=== PATIENT | female | born 1990 | race American Indian/Alaskan Native ===

== ENCOUNTER 2017-03-28 07:32 | Outpatient (CLI) | payer MEDICAID ==
[2017-03-28 07:47] VITALS: BP 127/66
--- NOTE | 2017-03-28 11:48 | Ultrasound Report ---
BIOPHYSICAL PROFILE: INDICATION: Decreased movement. COMPARISON: None similar at this institution. TECHNIQUE: Transabdominal ultrasound with Doppler interrogation. 2 - breathing movements 2 - movements 2 - posture and tone 2 - Qualitative amniotic fluid volume 8 - TOTAL SCORE OF POSSIBLE 8 Heart Rate (bpm) 135 CONCLUSION: Findings, as above. A distended urinary bladder incidentally noted throughout the exam. Please correlate.
== END 2017-03-28 10:38 | disposition home or self-care (01) ==
LOC: TRG 07:32
PROVIDERS: ATTEND Obstetrics & Gynecology
DX: O36.8130 Decreased fetal movements, third trimester, not applicable or unspecified (principal); O47.1 False labor at or after 37 completed weeks of gestation; Z3A.37 37 weeks gestation of pregnancy
CPT/HCPCS: 59025; 76819

== ENCOUNTER 2017-03-31 08:38 | Outpatient (CLI) | payer MEDICAID ==
[2017-03-31 08:51] VITALS: BP 132/80
[2017-03-31] MEDS ORDERED: VISTARIL PO PRN (10:00)
== END 2017-03-31 09:55 | disposition home or self-care (01) ==
LOC: TRG 08:38
PROVIDERS: ATTEND Obstetrics & Gynecology
DX: O47.1 False labor at or after 37 completed weeks of gestation (principal); Z3A.38 38 weeks gestation of pregnancy
CPT/HCPCS: 59025; Q0177

== ENCOUNTER 2017-04-02 05:43 | Outpatient (CLI) | payer MEDICAID ==
[2017-04-02] MEDS ORDERED: LACTATED RINGERS 1,000 ML IV ONE (06:07)
[2017-04-02] MEDS ORDERED: ZOFRAN IV ONE (06:07)
[2017-04-02] MEDS ORDERED: PHENERGAN PR PRN (08:02)
[2017-04-02 10:43] LABS: Urine Drugs of Abuse Note Disclamer
[2017-04-02 10:54] LABS: Hematocrit 36.3 % (30.3-42.9); Hemoglobin 11.5 gm/dl (10.1-14.3); Mean Corpuscular HGB Conc 32 % (30-34); Platelet Count 145 K/mm3 (140-440); Red Cell Distribution Width 18.7 % (13.2-15.2); White Blood Count 15.4 K/mm3 (4.5-11.0)
[2017-04-02] MEDS ORDERED: LACTATED RINGERS 1,000 ML ONE (10:54)
[2017-04-02 10:56] LABS: Bilirubin,Urine NEG (Negative); Blood,Urine NEG (Negative); Ketones,Urine 80 mg/dL (Negative); Leukocyte Esterase,Urine NEG (Negative); Mucus,Urine 3+ /HPF; Nitrite,Urine NEG (Negative)
[2017-04-02 10:59] LABS: Mean Corpuscular Hemoglobin 21 pg (28-32); Mean Corpuscular Volume 65 fl (79-97)
[2017-04-02] MEDS: LACTATED RINGERS 1,000 ML IV SCH ×2 (11:15→12:34)
[2017-04-02 11:18] LABS: Alanine Aminotransferase 8 units/L (7-56); Albumin 3.7 g/dL (3.9-5); Albumin/Globulin Ratio 1.1 %; Alkaline Phosphatase 239 units/L (35-129); Anion Gap 20 mmol/L; BUN/Creatinine Ratio 10; Blood Urea Nitrogen 4 mg/dL (7-17); Calcium 9.2 mg/dL (8.4-10.2); Carbon Dioxide 20 mmol/L (22-30); Chloride 102.2 mmol/L (98-107); Glucose 90 mg/dL (65-100); Potassium 3.5 mmol/L (3.6-5.0); Sodium 139 mmol/L (137-145); Total Protein 7.2 g/dL (6.3-8.2)
[2017-04-02] MEDS ORDERED: PEPCID IV SCH (12:00)
[2017-04-02 13:23] VITALS: BP 132/61
== END 2017-04-02 14:25 | disposition home or self-care (01) ==
LOC: TRG 05:43
PROVIDERS: ATTEND Obstetrics & Gynecology
DX: O47.1 False labor at or after 37 completed weeks of gestation (principal); Z3A.38 38 weeks gestation of pregnancy
CPT/HCPCS: 36415; 59025; 80053; 80307; 81001; 85027; 96360; 96361; J2405; J7120

== ENCOUNTER 2017-04-04 10:02 | Inpatient (IN) | payer MEDICAID ==
[2017-04-04 10:45] LABS: Bacteria,Urine 3+ /HPF (Negative); Bilirubin,Urine NEG (Negative); Blood,Urine SM (Negative); Color,Urine Yellow (Yellow); Mucus,Urine 1+ /HPF; Nitrite,Urine NEG (Negative); Urobilinogen,Urine < 2.0 mg/dL (<2.0)
[2017-04-04 10:57] LABS: Amphetamine Screen,Urine PRESUMPTIVE NEGATIVE; Benzodiazepines Screen,Urine PRESUMPTIVE NEGATIVE; Cannabinoid Screen,Urine PRESUMPTIVE NEGATIVE; Cocaine Screen,Urine PRESUMPTIVE NEGATIVE; Methadone Screen,Urine PRESUMPTIVE NEGATIVE; Opiate Screen,Urine PRESUMPTIVE NEGATIVE
[2017-04-04] MEDS ORDERED: LACTATED RINGERS 1,000 ML IV ONE (11:00)
[2017-04-04] MEDS ORDERED: PHENERGAN PR PRN (11:27)
[2017-04-04 11:28] LABS: Hematocrit 38.4 % (30.3-42.9); Hemoglobin 11.8 gm/dl (10.1-14.3); Mean Corpuscular HGB Conc 31 % (30-34); Platelet Count 224 K/mm3 (140-440); Red Cell Distribution Width 19.4 % (13.2-15.2)
[2017-04-04 11:30] LABS: Mean Corpuscular Hemoglobin 20 pg (28-32); Mean Corpuscular Volume 65 fl (79-97)
[2017-04-04] MEDS ORDERED: REGLAN ONE (11:39)
[2017-04-04] MEDS ORDERED: ANCEF/STERILE WATER 2 GM/20 ML 2 GM/20 ML SYRINGE IV ONE (11:39)
[2017-04-04] MEDS ORDERED: PITOCin/NS 20 UNIT/1000ML DRIP 20,000 MILLIUNITS/1,000 ML BAG IV ONE (11:39)
[2017-04-04] MEDS ORDERED: PITOCin/NS 30 UNIT/500ML 30,000 MILLIUNITS/500 ML BAG IV ONE (11:43)
--- NOTE | 2017-04-04 11:46 | History and Physical Report ---
History of Present Illness Date of examination: 04/04/17 Date of admission: 04/04/17 11:38 Chief complaint: nausea and vomiting x 3 days History of present illness: EDC Calculations by LMP: 04/12/2017 Past History : 6 Term Births: 3 Premature Births: 0 Living Children: 3 Para: 3 Mult. Births: 0 Prev : 0 Prev. attempt? 0 Aborta: 2 Elect. Ab: 0 Spont. Ab: 2 Ectopics: 0 # 1 Delivery date: 2008 Weeks Gestation: ? Delivery type: SAB Comments: No D&C # 2 Delivery date: 04/21/2009 Weeks Gestation: 40 labor: no Delivery type: Hours of labor: 15 Anesthesia type: epidural Delivery location: [facility] Sex: Female weight: 5-13 Name: Rip # 3 Delivery date: 10/30/2010 Weeks Gestation: 38 labor: no Delivery type: Hours of labor: 8-10 Anesthesia type: epidural Delivery location: [facility] Sex: Male weight: ?? Name: Harjinder # 4 Delivery date: 12/2014 Weeks Gestation: 11 Delivery type: SAB Delivery location: [facility] Comments: D&C # 5 Delivery date: 10/27/2015 Weeks Gestation: 38 labor: no Delivery type: Hours of labor: 8 Anesthesia type: epidural Delivery location: [facility] Infant Sex: Male weight: 5-13 Name: [place] Past Medical History: Negative Past Medical History Past Surgical History: D&C: Family History Summary: Other family member - Has No Family History of Ovarvian Cancer - Entered On: 01/2017 Other family member - Has No Family History of Colon Cancer - Entered On: 2016 Other family member - Has Family History of Hypertension - Entered On: 11/14/2016 Other family member - Has Family History of Diabetes - Entered On: 11/14/2016 Other family member - Has Family History of CVA or Stroke - Entered On: 2016 Other family member - Has Family History Breast Cancer - Entered On: 11/14/2016 Social History: Stay at home Patient is Risk Factors: Smoked Tobacco Use: Never smoker Drug use: no HIV high-risk behavior: low risk Alcohol use: no Dietary Counseling: pn yes Past 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 of genital herpes: no Partner hx. of genital herpes: no Genetic History Congenital Heart Defect: Mom: no Dad: no Jill Disease: Mom: no Dad: no Thalassemia Mom: no Dad: no Neural Tube Defect Mom: no Dad: no Down's Syndrome Mom: no Dad: no Jose-Sachs Mom: no Dad: no Sickle Cell Disease/Trait Mom: no Dad: no Hemophilia Mom: no Dad: no Muscular Dystrophy Mom: no Dad: no Cystic Fibrosis Mom: no Dad: no Jarrell Chorea Mom: no Dad: no Mental Retardation Mom: no Dad: no Fragile X Mom: no Dad: no Other Genetic/Chromosomal Disorder Mom: no Dad: no Child w/other defect Mom: no Dad: no Enviromental Exposures Xray Exposure: no Medication, drug, or alcohol use since LMP: no Chemical/Other Exposure: no Exposure to Cat Liter: no Hx of Parvovirus (Fifth Disease): no Current Allergies (reviewed today): No known allergies Past History Past Medical History: other (see HPI) Past Surgical History: other (see HPI) Social history: - Obstetrical History Expected Date of Delivery: 04/12/17 Actual Gestation: 38 Week(s) 6 Day(s) : 6 Para: 3 Hx # Term Pregnancies: 3 Spontaneous Abortions: 2 Number of Living Children: 3 Medications and Allergies Allergies Allergy/AdvReac Type Severity Reaction Status Date / Time No Known Allergies Allergy Verified 03/28/17 07:34 Home Medications Medication Instructions Recorded Confirmed Last Taken Type Vit-Fe Fumar-FA [ 1 tab PO QDAY 03/28/17 04/04/17 Unknown History Vitamin] Promethazine HCl 1 supp NOTAPPLIC PRN 04/04/17 04/04/17 Unknown History Active Meds: Active Medications Citric Acid/Sodium Citrate (Bicitra) 30 ml PO ONCE ONE Stop: 04/04/17 12:01 Famotidine (Pepcid) 20 mg IV BID DOMINGO Lactated Ringer's (Lactated Ringers) 1,000 mls @ 999 mls/hr IV BOLUS ONE Stop: 04/04/17 12:00 Ondansetron HCl (Zofran) 8 mg IV ONCE ONE Stop: 04/04/17 12:01 Promethazine HCl (Phenergan) 25 mg CA Q6H PRN PRN Reason: Nausea And Vomiting Review of Systems All systems: negative Constitutional: fatigue, weakness, malaise Cardiovascular: chest pain, no syncope, no shortness of breath Breasts: normal Gastrointestinal: nausea, vomiting, indigestion Genitourinary: no leakage of fluid Neurological: no headaches, no double vision - Vital Signs Vital signs: Vital Signs Pulse BP 78 134/69 04/04/17 10:28 04/04/17 10:28 Temp Pulse Resp BP Pulse Ox 79 169/82 97 04/04/17 11:43 04/04/17 11:43 04/04/17 11:42 - Physical Exam Breasts: Positive: normal Cardiovascular: Regular rate Lungs: Positive: Clear to auscultation, Normal air movement Abdomen: Positive: normal appearance, soft Genitourinary (Female): Positive: normal external genitalia, normal perenium Vulva: both: normal Vagina: Positive: normal moisture Uterus: Positive: normal size, normal contour Anus/Rectum: Positive: normal perianal skin Extremities: Positive: normal - Obstetrical FHR: category 3 ( tachycardia w/ late decels) Uterine Contraction Monitor Mode: External Cervical Dilatation: 5 Cervical Effacement Percentage: 80 station: -1 Uterine Contraction Frequency (min): irregular Uterine Contraction Pattern: Irregular Uterine Tone Measurement Phase: Resting Uterine Contraction Intensity: Mild Results Result Diagrams: 04/04/17 11:13 04/04/17 11:13 Abnormal lab results 04/04/17 04/04/17 Range/Units 10:10 11:13 WBC 23.7 H (4.5-11.0) K/mm3 RBC 5.90 H (3.65-5.03) M/mm3 MCV 65 L (79-97) fl MCH 20 L (28-32) pg RDW 19.4 H (13.2-15.2) % Urine WBC (Auto) 21.0 H (0.0-6.0) /HPF All other labs normal. Assessment and Plan 26y/o @ 38w6d arrived to triage with c/o n/v x 3 days, previously seen and treated for same complaints. Today she reports chest pain and sore throat from vomiting. FHT CAT 3 w/ late decels and tachycardia, Dr. Flores made aware and assessing patient. plan made to proceed with operative delivery d/t nonreassuring status. Admission and pre-op orders in EMR, consents obtained and patient prepped for urgent c/s delivery. - Patient Problems (1) 38 weeks gestation of Current Visit: Yes Status: Acute (2) Non-reassuring electronic monitoring tracing Current Visit: Yes Status: Acute (3) Nausea & vomiting Current Visit: Yes Status: Acute
[2017-04-04] MEDS ORDERED: MINERAL OIL PO PRN (11:47)
[2017-04-04] MEDS ORDERED: BRETHINE SUB-Q PRN (11:47)
[2017-04-04] MEDS ORDERED: ePHEDrine SULFATE IV PRN (11:47)
[2017-04-04] MEDS ORDERED: XYLOCAINE 2% INFILTRATI ONE (11:47)
[2017-04-04 11:50] LABS: Alanine Aminotransferase 9 units/L (7-56); Uric Acid 11.3 mg/dL (3.5-7.6)
[2017-04-04] MEDS ORDERED: REGLAN IV ONE (12:00)
[2017-04-04] MEDS ORDERED: PITOCin/NS 30 UNIT/500ML 30 UNITS/500 ML BAG IV SCH (12:00)
[2017-04-04] MEDS ORDERED: ANCEF/STERILE WATER 2 GM/20 ML 2 GM/20 ML SYRINGE IV NR (12:00)
[2017-04-04] MEDS ORDERED: BICITRA PO ONE (12:00)
[2017-04-04] MEDS ORDERED: PITOCin/NS 20 UNIT/1000ML DRIP 20 UNITS/1,000 ML BAG IV SCH ×3 (12:00→18:48)
[2017-04-04] MEDS ORDERED: ZOFRAN IV ONE (12:00)
[2017-04-04] MEDS ORDERED: LACTATED RINGERS 1,000 ML IV SCH ×2 (12:00→18:48)
[2017-04-04] MEDS ORDERED: MORPHINE ONE (12:10)
[2017-04-04] MEDS ORDERED: NEO SYNEPHRINE/NS Syringe(OR USE) IV ONE (12:23)
[2017-04-04] MEDS ORDERED: PEPCID IV SCH (12:30)
[2017-04-04] MEDS ORDERED: DEMEROL IV PRN (13:33)
--- NOTE | 2017-04-04 15:57 | Post Operative Note ---
Pre-op diagnosis: IUP@38weeks, NRFHT Post-op diagnosis: same Procedure: LTCS Anesthesia: spinal Surgeon: RANDY WALKER Estimated blood loss: other (600mL) Pathology: list (placenta) Specimen disposition: to lab Condition: stable Disposition: PACU
[2017-04-04] MEDS ORDERED: MAGNESIUM SULFATE 40GM/1000ML 40 GM/1,000 ML BAG IV SCH ×2 (17:00→18:48)
[2017-04-04] MEDS ORDERED: TYLENOL PR PRN (18:48)
[2017-04-04] MEDS ORDERED: TYLENOL PO PRN (18:48)
[2017-04-04] MEDS ORDERED: MILK OF MAGNESIA PO PRN (18:48)
[2017-04-04] MEDS ORDERED: LANSINOH TP PRN (18:48)
[2017-04-04] MEDS ORDERED: TORADOL IV PRN (18:48)
[2017-04-04] MEDS ORDERED: MYLICON PO PRN (18:48)
[2017-04-04] MEDS ORDERED: NARCAN 0.4 MG/1 ML IV PRN (18:48)
[2017-04-04] MEDS ORDERED: SODIUM CHLORIDE FLUSH SYRINGE 10 ML IV NR (18:48)
[2017-04-04] MEDS ORDERED: MORPHINE IV PRN ×2 (18:48)
[2017-04-04] MEDS ORDERED: TUCKS PAD TP PRN (18:48)
[2017-04-04] MEDS ORDERED: ANCEF/NS 1 GM/50 ML 1 GM/50 ML BAG IV SCH (18:48)
[2017-04-04] MEDS ORDERED: Fluarix Quad 2017-2018(36 MOS+ IM ONE (18:48)
[2017-04-04] MEDS ORDERED: MAGNESIUM SULFATE 4GM/100ML 4 GM/100 ML BAG IV ONE (18:48)
--- NOTE | 2017-04-04 19:05 | Operative Report ---
Operative Report Operative Report: Date: 04/04/2017 Preoperative diagnosis: 1. Intrauterine at 38 weeks 2. Nonreassuring heart rate tracing, category 3 3. Nausea vomiting 4. Preeclampsia Postoperative diagnosis: 1. Intrauterine at 38 weeks 2. Nonreassuring heart rate tracing, category 3 3. Nausea vomiting 4. Preeclampsia Procedure: Low uterine transverse incision for delivery Surgeon: Gauri Flores MD Seafood Team Member: Susan Soriano Anesthesia: Spinal Anesthesiologist: Miriam Ziegler M.D. Estimated blood loss: 600 mL Urine out: [] mL Findings: Live born male . Weight 6 lbs. 4 oz. Apgars 9 at 1 minute and 9 at 9 minutes. Uterus normal, tubes normal, ovaries normal. Procedure: After risk, benefits, complications, consequences and alternatives for this procedure were discussed with patient and consents were reviewed and signed, she was taken to the OR where spinal anesthesia was placed. She was then placed in the left lateral tilt position, and prepped and draped in the usual sterile fashion. Timeout was performed, and an appropriate level of anesthesia was noted, a Pfannenstiel incision was made and extended to the fascia which was incised and extended in the lateral directions. The overlying fascia was sharply dissected away from the underlying rectus muscles in the superior and inferior directions. The midline was entered bluntly. The vesicouterine fold was incised and with blunt dissection the bladder flap was created. A transverse incision was made in the lower uterine segment and extended in superiolateral direction with finger fractionation. Clear fluid was noted. The was delivered from cephalic position. Mouth and nose were bulb suctioned. Spontaneous cry and excellent tone were noted. Cord was doubly clamped and cut. The infant was given to /resuscitation team present. The placenta was manually extracted. The uterus was then exteriorized and cleared of any further products of conception or placental tissue. The incision was reapproximated using 0 Vicryl in a running interlocking stitch. Grossly normal uterus, tubes and ovaries were noted. Once hemostasis was noted, the uterus was allowed back into the pelvic cavity. The pelvis was irrigated with warm normal saline. Again hemostasis was noted . Tisseel applied for further hemostasis. Interceed was then placed to prevent adhesions. Then attention was turned to the rectus muscles. The rectus muscles reapproximated using 0 Vicryl in a simple interrupted stitch x 3. Once hemostasis was noted, the fascia was reapproximated using 0 Vicryl running stitch fashion. Once hemostasis was noted skin incision was reapproximated using 4-0 Vicryl on a Sai needle in a subcuticular manner. Counts were correct 3. Patient tolerated procedure well state recovery room in stable condition.
--- NOTE | 2017-04-04 19:37 | Event Note ---
Date: 04/04/17 Patient is resting in bed with baby and her labs and her present. She complains of feeling warm however no other complaints. She denies any chest pain and shortness of breath. Patient's states that he had either for poisoning or stomach far as recently. Again events leading up to her were discussed, there is no obvious evidence of infection. Questions were encouraged and answered. Will perform a CBC with next magnesium level and observe closely.
[2017-04-04] MEDS: ceFAZolin 1 GM in NACL 0.9% 20 ML IV SCH (20:31)
[2017-04-05 01:10] LABS: Basophils % (Auto) 0.1 % (0.0-1.8); Hematocrit 29.8 % (30.3-42.9); Hemoglobin 9.2 gm/dl (10.1-14.3); Lymphocytes # (Auto) 2.1 K/mm3 (1.2-5.4); Lymphocytes % (Auto) 10.7 % (13.4-35.0); Mean Corpuscular HGB Conc 31 % (30-34); Monocytes # (Auto) 1.6 K/mm3 (0.0-0.8); Platelet Count 161 K/mm3 (140-440); Red Blood Count 4.59 M/mm3 (3.65-5.03); Red Cell Distribution Width 19.2 % (13.2-15.2)
[2017-04-05 01:16] LABS: Mean Corpuscular Volume 65 fl (79-97)
[2017-04-05 01:17] LABS: Mean Corpuscular Hemoglobin 20 pg (28-32)
[2017-04-05] MEDS: ceFAZolin 1 GM in NACL 0.9% 20 ML IV SCH (03:54)
--- NOTE | 2017-04-05 08:41 | Progress Note ---
Assessment and Plan - Patient Problems (1) delivery delivered Onset Date: ~04/04/17 Current Visit: Yes Status: Acute Plan to address problem: No c/o voiced Pt breast feeding VSS FF below umb Lochia small Dressing D&I due to be removed @ noon. H&H 01/03 drop r/t blood loss from surgery Pt is asymptomatic @ this time. Doing well s/p section PreE stable P: continue pathway Advance as tolerated Continue MGSO4 (2) Pre-eclampsia Onset Date: ~04/04/17 Current Visit: Yes Status: Acute Plan to address problem: MGSO4 continues BPs 106/62 Will decrease MGSO4 to 1GM/Hr and d/c @ noon to complete 24hr dosing.Pt w/o PRIETO, blurred vision, chest pain. All questions addressed. Subjective - Subjective Date of service: 04/05/17 (pt w/o compalint Breast feeding @ time of rounds) Principal diagnosis: Day # 1 s/p Primary section; PreE Patient reports: appetite normal, voiding normally (townsend cath) : doing well Objective - Vital Signs Latest vital signs: Vital Signs Temp Pulse Resp BP BP Pulse Ox 04/05/17 06:08 97.5 F L 99 H 18 101/66 98 04/05/17 04:00 97.5 F L 96 H 18 107/57 98 04/05/17 01:55 97.4 F L 91 H 18 105/59 96 04/05/17 00:00 97.7 F 89 18 104/61 04/04/17 23:48 20 04/04/17 22:00 98 F 105 H 18 128/63 04/04/17 21:31 99 04/04/17 20:00 98.9 F 114 H 18 118/78 04/04/17 18:20 98.6 F 94 H 16 112/65 04/04/17 18:12 117 H 120/57 04/04/17 18:11 118 H 97 04/04/17 18:06 117 H 97 04/04/17 18:04 111 H 112/55 04/04/17 18:01 117 H 97 04/04/17 17:56 108 H 98 04/04/17 17:55 98.5 F 20 04/04/17 17:51 112 H 98 04/04/17 17:46 118 H 98 04/04/17 17:41 104 H 98 04/04/17 17:36 127 H 98 04/04/17 17:31 122 H 98 04/04/17 17:26 122 H 98 04/04/17 17:21 117 H 98 04/04/17 17:16 125 H 97 04/04/17 17:11 120 H 98 04/04/17 17:09 139 H 0 L 04/04/17 17:06 119 H 98 04/04/17 17:04 125 H 108/71 04/04/17 17:01 125 H 98 04/04/17 16:56 102 H 98 04/04/17 16:51 122 H 97 04/04/17 16:46 102 H 98 04/04/17 16:41 105 H 98 04/04/17 16:36 119 H 129/73 99 04/04/17 16:31 116 H 98 04/04/17 16:26 126 H 97 04/04/17 16:21 118 H 98 04/04/17 16:16 131 H 99 04/04/17 16:11 106 H 99 04/04/17 16:06 101 H 130/64 98 04/04/17 16:01 94 H 98 04/04/17 15:56 81 98 04/04/17 15:51 104 H 97 04/04/17 15:46 113 H 98 04/04/17 15:41 97 H 98 04/04/17 15:36 67 117/56 98 04/04/17 15:32 87 82 L 04/04/17 15:31 87 93 04/04/17 15:26 79 98 04/04/17 15:21 82 99 04/04/17 15:16 91 H 99 04/04/17 15:14 55 L 81 L 04/04/17 15:11 103 H 99 04/04/17 15:06 99 H 126/67 99 04/04/17 15:01 76 99 04/04/17 14:56 111 H 99 04/04/17 14:51 97 H 99 04/04/17 14:46 84 100 04/04/17 14:41 101 H 99 04/04/17 14:36 81 110/62 100 04/04/17 14:30 99.0 F 04/04/17 14:15 90 14 135/87 99 04/04/17 14:00 102 H 13 139/85 100 04/04/17 13:46 85 13 127/79 100 04/04/17 13:30 119 H 28 H 134/101 100 04/04/17 13:16 102 H 21 64/24 47 L 04/04/17 13:04 97.6 F 137 H 11 L 04/04/17 12:04 104 H 90 04/04/17 12:02 87 98 04/04/17 11:57 102 H 161/76 100 04/04/17 11:52 88 100 04/04/17 11:51 72 167/87 04/04/17 11:47 76 100 04/04/17 11:43 79 169/82 04/04/17 11:42 113 H 97 04/04/17 11:37 88 100 04/04/17 11:32 108 H 99 04/04/17 11:30 72 144/81 04/04/17 11:28 68 153/87 04/04/17 11:27 99 H 100 04/04/17 11:26 120 H 90 04/04/17 11:07 82 99 04/04/17 11:03 88 100 04/04/17 10:58 76 139/71 04/04/17 10:57 80 99 04/04/17 10:52 78 99 04/04/17 10:48 77 99 04/04/17 10:43 70 100 04/04/17 10:28 78 134/69 Intake and Output 04/04/17 04/05/17 04/05/17 22:59 06:59 14:59 Intake Total 480 Output Total 800 Balance -320 Intake: Intake, Free Water 480 Output: Urine 800 Indwelling Catheter 800 Other: Total, Output Amount 200 - Exam Breasts: Present: normal, Cardiovascular: Present: Regular rate Lungs: Present: Normal air movement Abdomen: Present: normal appearance, soft, normal bowel sounds Uterus: Present: normal, fundal height below umbilicus Extremities: Present: normal Deep Tendon Reflex Grade: Normal +2 Incision: Present: normal, dry, intact, dressed (to be removed @ noon) - Labs Labs: Abnormal lab results 04/04/17 04/04/17 04/04/17 Range/Units 10:10 11:13 11:13 WBC 23.7 H (4.5-11.0) K/mm3 RBC 5.90 H (3.65-5.03) M/mm3 Hgb (10.1-14.3) gm/dl Hct (30.3-42.9) % MCV 65 L (79-97) fl MCH 20 L (28-32) pg RDW 19.4 H (13.2-15.2) % Lymph % (Auto) (13.4-35.0) % Alpine % (Auto) (0.0-7.3) % Alpine # (0.0-0.8) K/mm3 Seg Neutrophils % (40.0-70.0) % Seg Neutrophils # (1.8-7.7) K/mm3 Creatinine 0.6 L (0.7-1.2) mg/dL Uric Acid 11.3 H (3.5-7.6) mg/dL Magnesium (1.7-2.3) mg/dL Lactate Dehydrogenase 215 H (91-180) units/L Urine WBC (Auto) 21.0 H (0.0-6.0) /HPF 04/04/17 04/05/17 04/05/17 Range/Units 19:16 00:33 00:33 WBC 19.5 H (4.5-11.0) K/mm3 RBC (3.65-5.03) M/mm3 Hgb 9.2 L (10.1-14.3) gm/dl Hct 29.8 L D (30.3-42.9) % MCV 65 L (79-97) fl MCH 20 L (28-32) pg RDW 19.2 H (13.2-15.2) % Lymph % (Auto) 10.7 L (13.4-35.0) % Alpine % (Auto) 8.0 H (0.0-7.3) % Alpine # 1.6 H (0.0-0.8) K/mm3 Seg Neutrophils % 81.2 H (40.0-70.0) % Seg Neutrophils # 15.9 H (1.8-7.7) K/mm3 Creatinine (0.7-1.2) mg/dL Uric Acid (3.5-7.6) mg/dL Magnesium 2.60 H 3.70 H (1.7-2.3) mg/dL Lactate Dehydrogenase (91-180) units/L Urine WBC (Auto) (0.0-6.0) /HPF 04/05/17 Range/Units 06:12 WBC (4.5-11.0) K/mm3 RBC (3.65-5.03) M/mm3 Hgb (10.1-14.3) gm/dl Hct (30.3-42.9) % MCV (79-97) fl MCH (28-32) pg RDW (13.2-15.2) % Lymph % (Auto) (13.4-35.0) % Alpine % (Auto) (0.0-7.3) % Alpine # (0.0-0.8) K/mm3 Seg Neutrophils % (40.0-70.0) % Seg Neutrophils # (1.8-7.7) K/mm3 Creatinine (0.7-1.2) mg/dL Uric Acid (3.5-7.6) mg/dL Magnesium 3.70 H (1.7-2.3) mg/dL Lactate Dehydrogenase (91-180) units/L Urine WBC (Auto) (0.0-6.0) /HPF
[2017-04-05] MEDS: PERCOCET 5/325 PO PRN (10:30)
--- NOTE | 2017-04-05 11:32 | Event Note ---
Date: 04/05/17 Agree with exam and note. Cont magnesium x 24 hrs. Currently bps are normal. Pt otherwise stable. Routine post op care.
[2017-04-05] MEDS: MOTRIN PO PRN ×2 (12:18→18:11)
[2017-04-05] MEDS ORDERED: BOOSTRIX IM ONE (13:06)
[2017-04-06] MEDS: PERCOCET 5/325 PO PRN ×3 (00:33→20:55)
--- NOTE | 2017-04-06 11:34 | Progress Note ---
Assessment and Plan - Patient Problems (1) delivery delivered Onset Date: ~04/04/17 Current Visit: Yes Status: Acute Plan to address problem: Pt A&O X 3 Breast feeding. Pt concerned she is just not ready to go home. Reassured pt she can d/c tomorrow. RN states she will review care with pt. Abdominal binder provided. Encouraged to be OOB and to ambulate in hallway and to shower. VSS FF below umb Lochia small Incision D&I H&H 01/03 blood loss r/t surgery Pt is asymptomatic Doing well s/p c/s and PreE P: continue pathway Reinforce all PP teaching Advance as tolerated D/C tomorrow. (2) Pre-eclampsia Onset Date: ~04/04/17 Current Visit: Yes Status: Acute Plan to address problem: 24hr MGSO4 completed BP this AM 120/70 No c/o PRIETO, blurred vision, chest pain. Subjective - Subjective Date of service: 04/06/17 ("I'm just scared to go home. I need more instruction. ") Principal diagnosis: Day # 2 s/p Primary section; PreE Patient reports: appetite normal, voiding normally, pain well controlled, ambulating normally : doing well Objective - Vital Signs Latest vital signs: Vital Signs Temp Pulse Resp BP BP Pulse Ox 04/06/17 08:38 98.5 F 104 H 20 133/79 04/06/17 00:33 20 04/06/17 00:00 99.1 F 87 18 122/72 04/05/17 17:12 98.1 F 86 20 115/70 98 04/05/17 12:02 98.4 F 96 H 18 108/69 97 Intake and Output 04/05/17 04/06/17 04/06/17 22:59 06:59 14:59 Intake Total 720 840 Output Total 400 Balance 320 840 Intake: Oral 720 Intake, Free Water 840 Output: Urine 400 Void 400 Other: Total, Intake Amount 240 Total, Output Amount 400 # Voids Void 0 1 1 - Exam Breasts: Present: normal, Cardiovascular: Present: Regular rate Lungs: Present: Clear to auscultation, Normal air movement Abdomen: Present: normal appearance, soft, normal bowel sounds Uterus: Present: normal, fundal height below umbilicus Extremities: Present: normal Deep Tendon Reflex Grade: Normal +2 Incision: Present: dry, intact
[2017-04-07] MEDS: PERCOCET 5/325 PO PRN ×2 (04:10→12:25)
--- NOTE | 2017-04-07 06:48 | Discharge Summary ---
Providers - Providers Date of Admission: 04/04/17 11:38 Date of discharge: 04/07/17 (pt agrees with d/c; desires DEPO for BC) Attending physician: RANDY WALKER 04/04/17 18:48 Consult to Director Of Clinical Applications [CONS] Routine Reason For Exam: Primary care physician: SHEILA GODINEZ Hospitalization Reason for admission: active labor Delivery: Procedure: primary low transverse (PreE; NRFT) Episiotomy: none Laceration: none Incision: normal, dry, intact Other procedures: none complications: other (PreE; MGSO4 X 24 hours) Discharge diagnosis: IUP at term delivered [place] baby: male Hospital course: uncomplicated primary section due to NRFT PreE received MGSO4 X 24 hours Pt resting No c/o voiced Breast feeding well VSS FF below umb Lochia scant Incsion D&I Pt asymptomatic anemia Rhogam not indicated Baby is Rh negative. Doing well s/p c/s; PreE P: d/c today with instructions RTO 1 week incision check BP check, pt instructed to call with PRIETO, blurred vision, chest pain. Son' s circumcision one week, EMLA RX given. RXes provided. DEPO @ d/c Condition at discharge: Good Disposition: DC-01 TO HOME OR SELFCARE - Discharge Diagnoses (1) delivery delivered Status: Acute Comment: RTO 1 week postop (2) Pre-eclampsia Status: Acute Comment: RTO 1 week BP check pt instructed to call with PRIETO, blurred vision, chest pain. Plan - Discharge Medications Prescriptions: Ibuprofen [Motrin 800 MG tab] 800 mg PO TID PRN #30 tablet PRN Reason: Pain Lidocain2.5%/Prilocai2.5% [Emla] 5 gm TP ONCE #1 tube oxyCODONE /ACETAMINOPHEN [Percocet 5/325 mg] 1 - 2 tab PO Q4HR PRN #30 tablet PRN Reason: Pain - Provider Discharge Summary Activity: routine, no sex for 6 weeks, no heavy lifting 4 weeks, no strenuous exercise Diet: other (NO SALT) Instructions: routine Additional instructions: [] Smoking cessation referral if applicable(refer to patient education folder for contact #) [] Refer to [facility] Booklet Call your doctor immediately for: * Fever > 100.5 * Heavy vaginal bleeding ( >1 pad per hour) * Severe persistent headache * Shortness of breath * Reddened, hot, painful area to leg or breast * Drainage or odor from incision. * Keep incision clean and dry at all times and follow doctor's instructions regarding bathing/showering - Follow up plan Follow up: RANDY WALKER MD [Staff Physician] - 7 Days (Congratulations and Happy New Year! Please call [phone] to schedule your postoperative visit and blood pressure check in one week. Make your son's circumcision appointment for one week, bring the EMLA cream with you to his visit. Take medications as prescribed. Call with headache unrelieved with Tylenol, blurred vision, chest pain. Call with any concerns.)
[2017-04-07] MEDS ORDERED: DEPO-PROVERA (CONTRACEPTION) IM ONE (07:04)
[2017-04-07] MEDS: MOTRIN PO PRN (12:26)
[2017-04-07 14:45] VITALS: BP 138/85
== END 2017-04-07 13:15 | disposition home or self-care (01) | DRG 765 ==
LOC: TRG 10:02 → LD 11:38 → OB 18:18
PROVIDERS: ADMIT Obstetrics & Gynecology; ATTEND Obstetrics & Gynecology
PROC: 10D00Z1 Extraction of Products of Conception, Low, Open Approach (ICD-10-PCS; principal; 2017-04-04)
PROC: 3E0234Z Introduction of Serum, Toxoid and Vaccine into Muscle, Percutaneous Approach (ICD-10-PCS; 2017-04-05)
DX: O76 Abnormality in fetal heart rate and rhythm complicating labor and delivery (principal); O14.94 Unspecified pre-eclampsia, complicating childbirth; O75.89 Other specified complications of labor and delivery; Z3A.38 38 weeks gestation of pregnancy; Z37.0 Single live birth; R11.2 Nausea with vomiting, unspecified; Z23 Encounter for immunization
CPT/HCPCS: 36415; 80307; 81001; 82565; 83615; 83735; 84450; 84460; 84550; 85025; 85027; 86592; 86850; 86900; 86901; 88307; 90686; 93005; 93010; 99211; A6250; C1765; C9250; G0463; J0690; J1050; J1885; J2175; J2270; J2370; J2405; J2590; J2765; J3475; J7120

== ENCOUNTER 2018-07-02 15:21 | Outpatient (CLI) | payer OTHER ==
[2018-07-02] MEDS ORDERED: AMBIEN PO PRN ×2 (15:32→20:30)
[2018-07-02] MEDS ORDERED: BENADRYL PO PRN (15:32)
[2018-07-02] MEDS ORDERED: COLACE PO PRN (15:32)
[2018-07-02] MEDS ORDERED: ZOFRAN IV PRN (15:32)
[2018-07-02] MEDS ORDERED: ALUM-MAG HYDROX-SIMETH 200-200-20MG/5ML PO PRN (15:32)
[2018-07-02] MEDS ORDERED: MILK OF MAGNESIA PO PRN (15:32)
[2018-07-02] MEDS ORDERED: TYLENOL PO PRN ×2 (15:32→15:49)
[2018-07-02] MEDS ORDERED: MYLICON PO PRN (15:32)
[2018-07-02] MEDS ORDERED: SUBLIMAZE IV PRN (15:41)
--- NOTE | 2018-07-02 15:54 | History and Physical Report ---
History of Present Illness Date of examination: 07/02/18 Chief complaint: (L) back and flank pain History of present illness: This is a 27 yof IUP@ 23w3d EGA who was recently admitted with the same symptoms associated the hematuria. She received IV Rocephin for presume pyelonephritis. Renal US was normal. Her pain improved and she was allowed home on Macrobid. She presented to the office today for her routine OB visit still with (L) flank pain (10). UA revealed 3+ blood and 2+ protein and large ketones. UC was found to be negative at [facility] and she was given a referral to a Urologist for evaluation and instructed to return to the office 4weeks. She now presents complaining of severe back pain and urinary retention. She's again admitted and will be evaluated for kidney stones. Past History : 7 Term Births: 4 Premature Births: 0 Living Children: 4 Para: 4 Mult. Births: 0 Prev : 0 Prev. attempt? 0 Aborta: 2 Elect. Ab: 0 Spont. Ab: 2 Ectopics: 0 # 1 Delivery date: 2008 Weeks Gestation: ? Delivery type: SAB Comments: No D&C # 2 Delivery date: 04/21/2009 Weeks Gestation: 40 labor: no Delivery type: Hours of labor: 15 Anesthesia type: epidural Delivery location: [facility] Infant Sex: Female weight: 5-13 Name: Rip # 3 Delivery date: 10/30/2010 Weeks Gestation: 38 labor: no Delivery type: Hours of labor: 8-10 Anesthesia type: epidural Delivery location: [facility] Sex: Male weight: ?? Name: Harjinder # 4 Delivery date: 12/2014 Weeks Gestation: 11 Delivery type: SAB Delivery location: [facility] Comments: D&C # 5 Delivery date: 10/27/2015 Weeks Gestation: 38 labor: no Delivery type: Hours of labor: 8 Anesthesia type: epidural Delivery location: [facility] Infant Sex: Male weight: 5-13 Name: Salinas # 6 Delivery date: 04/04/2017 Weeks Gestation: 38 Delivery type: Anesthesia type: spinal Delivery location: [facility] Infant Sex: male weight: 6.25 Comments: Cat 3 FHT's Past Medical History: Reviewed history from 11/14/2016 and no changes required: Negative Past Medical History Past Surgical History: Reviewed history from 04/04/2017 and no changes required: D&C: (04/04/2017) Past Medical History Abnormal PAP: negative Family Hx: DM - mother HTN - mother, sister, brother Social Hx: Stay at home Patient is Infection History Hx of STD: none HIV Risk Eval: no Hepatitis B Risk Eval: low risk Personal hx. of genital herpes: no Partner hx. of genital herpes: no Rash, Viral, or Febrile illness since last LMP? no Varicella/Chicken Pox Status: Previous Disease Genetic History Congenital Heart Defect: Mom: no Dad: no Jill Disease: Mom: no Dad: no Thalassemia Mom: no Dad: no Neural Tube Defect Mom: no Dad: no Down's Syndrome Mom: no Dad: no Jose-Sachs Mom: no Dad: no Sickle Cell Disease/Trait Mom: no Dad: no Hemophilia Mom: no Dad: no Muscular Dystrophy Mom: no Dad: no Cystic Fibrosis Mom: no Dad: no Lisa Chorea Mom: no Dad: no Mental Retardation Mom: no Dad: no Fragile X Mom: no Dad: no Other Genetic/Chromosomal Disorder Mom: no Dad: no Child w/other defect Mom: no Dad: no Enviromental Exposures Xray Exposure: no Medication, drug, or alcohol use since LMP: no Chemical/Other Exposure: no Exposure to Cat Liter: no Hx of Parvovirus (Fifth Disease): no Occupational Exposure to Children: none Active Medications (reviewed today): PRENATE MINI 18-0.6-0.4-350 MG ORAL CAPSULE ([id number]-DHA) 1 PO QD ZOFRAN ODT 8 MG ORAL TABLET DISINTEGRATING (ONDANSETRON) 1 po q12hrs prn MEDROXYPROGESTERONE ACETATE 150 MG/ML INTRAMUSCULAR SUSPENSION (MEDROXYPROGESTERONE ACETATE) 1 injection q 3 months bring to office for injection Current Allergies (reviewed today): No known allergies Past History - Obstetrical History Expected Date of Delivery: 10/26/18 Actual Gestation: 23 Week(s) 3 Day(s) : 7 Medications and Allergies Allergies Allergy/AdvReac Type Severity Reaction Status Date / Time No Known Allergies Allergy Verified 03/28/17 07:34 Home Medications Medication Instructions Recorded Confirmed Last Taken Type Vit-Fe Fumar-FA [ 1 tab PO QDAY 03/28/17 07/02/18 07/01/18 09:00 History Vitamin] Nitrofurantoin [place]/M-Cryst 100 mg PO Q12HR #14 capsule 06/27/18 07/02/18 07/02/18 09:00 Rx [Macrobid CAP] Active Meds: Active Medications Acetaminophen (Tylenol) 650 mg PO Q6H PRN PRN Reason: Pain MILD(1-3)/Fever >100.5/PRIETO Al Hydrox/Mg Hydrox/Simethicone (Alum-Mag Hydrox-Simeth [phone]/5ml) 30 ml PO Q6H PRN PRN Reason: Indigestion Diphenhydramine HCl (Benadryl) 25 mg PO Q6H PRN PRN Reason: Itching Docusate Sodium (Colace) 100 mg PO Q12H PRN PRN Reason: Constipation Fentanyl (Sublimaze) 100 mcg IV ONCE PRN PRN Reason: Pain , Severe (7-10) Lactated Ringer's (Lactated Ringers) 1,000 mls @ 125 mls/hr IV DIRECT [place] Magnesium Hydroxide (Milk Of Magnesia) 30 ml PO QHS PRN PRN Reason: Laxative Effect Multivitamins/Iron/Calcium ( Vitamin) 1 each PO QDAY [place] Ondansetron HCl (Zofran) 4 mg IV Q6H PRN PRN Reason: Nausea And Vomiting Simethicone (Mylicon) 80 mg PO Q6H PRN PRN Reason: Gas pain - Vital Signs Vital signs: Vital Signs Pulse Pulse Ox 82 100 07/02/18 15:46 07/02/18 15:46 Temp Pulse Resp BP Pulse Ox 82 119/70 100 07/02/18 15:48 07/02/18 15:48 07/02/18 15:46 - Physical Exam Breasts: Positive: deferred Cardiovascular: Regular rate Lungs: Positive: Clear to auscultation, Normal air movement Abdomen: Positive: soft. Negative: tenderness Uterus: Positive: enlarged. Negative: tender - Obstetrical FHR: category 1 (for EGA) Uterine Contraction Monitor Mode: External Results Result Diagrams: 07/02/18 15:50 07/02/18 15:50 All other labs normal. Assessment and Plan - Patient Problems (1) 23 weeks gestation of Current Visit: Yes Status: Acute (2) Urinary retention Current Visit: Yes Status: Acute (3) Left flank pain Current Visit: No Status: Acute Plan to address problem: Clinical picture seems more c/w with kidney stone, Renal US report reviewed Urology consulted. Continue IVF hydration for now
[2018-07-02 16:06] LABS: Basophils % (Auto) 0.5 % (0.0-1.8); Eosinophils # (Auto) 0.1 K/mm3 (0.0-0.4); Eosinophils % (Auto) 1.2 % (0.0-4.3); Hematocrit 33.6 % (30.3-42.9); Hemoglobin 11.1 gm/dl (10.1-14.3); Lymphocytes # (Auto) 1.2 K/mm3 (1.2-5.4); Mean Corpuscular HGB Conc 33 % (30-34); Monocytes # (Auto) 0.5 K/mm3 (0.0-0.8); Monocytes % (Auto) 5.2 % (0.0-7.3); Platelet Count 192 K/mm3 (140-440); Red Blood Count 4.91 M/mm3 (3.65-5.03)
[2018-07-02 16:21] LABS: Alanine Aminotransferase 8 units/L (7-56); BUN/Creatinine Ratio 8; Blood Urea Nitrogen 4 mg/dL (7-17); Calcium 9.3 mg/dL (8.4-10.2); Hemolysis Index 25
[2018-07-02 16:29] LABS: Mean Corpuscular Hemoglobin 23 pg (28-32); Mean Corpuscular Volume 69 fl (79-97)
[2018-07-02 16:33] LABS: Bacteria,Urine 1+ /HPF (Negative); Bilirubin,Urine NEG (Negative); Blood,Urine MOD (Negative); Color,Urine Amber (Yellow); Hyaline Casts,Urine 1 /LPF; Mucus,Urine 3+ /HPF
[2018-07-02 16:39] LABS: Amphetamine Screen,Urine PRESUMPTIVE NEGATIVE; Benzodiazepines Screen,Urine PRESUMPTIVE NEGATIVE; Cocaine Screen,Urine PRESUMPTIVE NEGATIVE; Methadone Screen,Urine PRESUMPTIVE NEGATIVE; Opiate Screen,Urine PRESUMPTIVE NEGATIVE
[2018-07-02 16:50] LABS: Cannabinoid Screen,Urine PRESUMPTIVE POSITIVE
--- NOTE | 2018-07-02 18:07 | Ultrasound Report ---
PROCEDURE: US RENAL BILAT TECHNIQUE: Real-time sonography was performed of the kidneys with image documentation. HISTORY: kidney stones with left flank pain COMPARISONS: Ultrasound kidneys 06/26/2018 . FINDINGS: Examination of the kidneys demonstrates both to be normal in size and have normal cortical echogenici ty and thickness. The right and left kidneys measure 10.2 cm and 11.9 cm in craniocaudal length, resp ectively. No evidence for calculi or solid mass is seen in either kidney. In the left kidney, there is mild hydronephrosis now seen, increased from previous. No hydronephrosis on the right is seen. The urinary bladder is collapsed containing a Barnett catheter balloon. IMPRESSION: Increasing dilatation of the left renal pelvis This document is electronically signed by Liya Hartmann MD., July 02 2018 06:05:52 PM ET
[2018-07-02] MEDS ORDERED: TYLENOL PO ONE (21:00)
[2018-07-02] MEDS: LACTATED RINGERS 1,000 ML IV SCH (21:16)
--- NOTE | 2018-07-02 22:38 | Consultation ---
HISTORY OF PRESENT ILLNESS: The patient is a 27-year-old woman who presented with flank pain, nausea and vomiting. She was just given some fentanyl. She was here last week as well. She had a normal renal ultrasound. There is a question of whether she has a pyelonephritis. She had Macrobid. PAST MEDICAL HISTORY: She has multiple pregnancies, 4 term births. PAST SURGICAL HISTORY: Previous D and C and . SOCIAL HISTORY: Noncontributory. FAMILY HISTORY: Negative. REVIEW OF SYSTEMS: No gross hematuria. She has not noticed any stones. PHYSICAL EXAMINATION: ABDOMEN: She is clearly . She is about 23-24 weeks. Abdomen is soft with some dull left flank pain. Pelvic examination is not done. IMPRESSION AND PLAN: Possible renal colic, doubtful within the renal ultrasound, but we will keep an eye on her, possibly repeat the ultrasound if needed. CT scan could not be obtained because of and at this point, I would manage this conservatively possible repeat the ultrasound tomorrow. Urine culture was sent. She denies fevers and chills and her white count was 9.8. We will plan repeat ultrasound tomorrow. JOB# [id number] MACHO/REINALDO
[2018-07-03] MEDS ORDERED: TYLENOL PO PRN (03:00)
--- NOTE | 2018-07-03 07:58 | Progress Note ---
Assessment and Plan patient resting, townsend to [facility]SB. no complaints. reports pain improved. requesting regular diet and asking about discharge home. VSSAF. repeat renal scan ordered per Dr. Shaw consultation. Will consult Dr. Gay for additional plan of care. - Patient Problems (1) 23 weeks gestation of Current Visit: Yes Status: Acute (2) Hematuria Current Visit: No Status: Acute Qualifiers: Hematuria type: unspecified type Qualified Code(s): R31.9 - Hematuria, unspecified Subjective - Subjective Date of service: 07/03/18 (public safety telecommunicator note) Principal diagnosis: hematuria and L flank pain Patient reports: no new complaints (reports pain improved, requesting regular diet) Objective - Vital Signs Vital Signs: Vital Signs - 12hr 07/02/18 07/02/18 07/02/18 20:22 20:27 20:32 Temperature Pulse Rate 78 83 79 Respiratory Rate Blood Pressure Blood Pressure [Left] O2 Sat by Pulse 100 100 100 Oximetry 07/02/18 07/02/18 07/02/18 20:37 20:42 20:47 Temperature Pulse Rate 84 55 L 76 Respiratory Rate Blood Pressure Blood Pressure [Left] O2 Sat by Pulse 100 57 L 99 Oximetry 07/02/18 07/02/18 07/02/18 20:52 20:57 21:02 Temperature Pulse Rate 79 76 78 Respiratory Rate Blood Pressure Blood Pressure [Left] O2 Sat by Pulse 99 99 99 Oximetry 07/02/18 07/02/18 07/02/18 21:07 21:09 21:12 Temperature Pulse Rate 74 72 72 Respiratory Rate Blood Pressure 110/60 Blood Pressure [Left] O2 Sat by Pulse 99 99 Oximetry 07/02/18 07/02/18 07/02/18 21:14 21:17 21:21 Temperature 97.7 F Pulse Rate 78 99 H Respiratory 18 Rate Blood Pressure Blood Pressure 110/60 [Left] O2 Sat by Pulse 100 86 Oximetry 07/02/18 07/02/18 07/02/18 21:22 21:27 21:32 Temperature Pulse Rate 75 74 73 Respiratory Rate Blood Pressure Blood Pressure [Left] O2 Sat by Pulse 100 99 99 Oximetry 07/02/18 07/02/18 07/02/18 21:37 21:42 21:47 Temperature Pulse Rate 71 72 77 Respiratory Rate Blood Pressure Blood Pressure [Left] O2 Sat by Pulse 98 98 98 Oximetry 07/02/18 07/02/18 07/02/18 21:52 21:57 22:02 Temperature Pulse Rate 101 H 79 79 Respiratory Rate Blood Pressure Blood Pressure [Left] O2 Sat by Pulse 98 98 98 Oximetry 07/02/18 07/02/18 07/02/18 22:07 22:12 22:17 Temperature Pulse Rate 80 77 75 Respiratory Rate Blood Pressure Blood Pressure [Left] O2 Sat by Pulse 97 98 98 Oximetry 07/02/18 07/02/18 07/02/18 22:22 22:27 22:32 Temperature Pulse Rate 70 75 70 Respiratory Rate Blood Pressure Blood Pressure [Left] O2 Sat by Pulse 98 98 98 Oximetry 07/02/18 07/02/18 07/02/18 22:37 22:42 22:47 Temperature Pulse Rate 75 80 88 Respiratory Rate Blood Pressure Blood Pressure [Left] O2 Sat by Pulse 99 99 100 Oximetry 07/02/18 07/02/18 07/02/18 22:52 22:57 23:02 Temperature Pulse Rate 63 63 67 Respiratory Rate Blood Pressure Blood Pressure [Left] O2 Sat by Pulse 99 98 98 Oximetry 07/02/18 07/02/18 07/02/18 23:07 23:12 23:17 Temperature Pulse Rate 69 79 82 Respiratory Rate Blood Pressure Blood Pressure [Left] O2 Sat by Pulse 97 97 97 Oximetry 07/02/18 07/02/18 07/02/18 23:22 23:27 23:32 Temperature Pulse Rate 81 83 88 Respiratory Rate Blood Pressure Blood Pressure [Left] O2 Sat by Pulse 97 97 97 Oximetry 07/02/18 07/02/18 07/02/18 23:37 23:42 23:47 Temperature Pulse Rate 85 96 H 82 Respiratory Rate Blood Pressure Blood Pressure [Left] O2 Sat by Pulse 97 97 96 Oximetry 07/02/18 07/02/18 07/03/18 23:52 23:57 00:02 Temperature Pulse Rate 78 85 82 Respiratory Rate Blood Pressure Blood Pressure [Left] O2 Sat by Pulse 97 98 97 Oximetry 07/03/18 07/03/18 07/03/18 00:07 00:12 00:17 Temperature Pulse Rate 84 86 83 Respiratory Rate Blood Pressure Blood Pressure [Left] O2 Sat by Pulse 97 97 98 Oximetry 07/03/18 07/03/18 07/03/18 00:22 00:27 00:32 Temperature Pulse Rate 83 83 81 Respiratory Rate Blood Pressure Blood Pressure [Left] O2 Sat by Pulse 98 98 98 Oximetry 07/03/18 07/03/18 07/03/18 00:37 00:42 00:47 Temperature Pulse Rate 73 78 72 Respiratory Rate Blood Pressure Blood Pressure [Left] O2 Sat by Pulse 98 98 98 Oximetry 07/03/18 07/03/18 07/03/18 00:52 00:57 01:02 Temperature Pulse Rate 72 77 76 Respiratory Rate Blood Pressure Blood Pressure [Left] O2 Sat by Pulse 98 98 98 Oximetry 07/03/18 07/03/18 07/03/18 01:07 01:12 01:17 Temperature Pulse Rate 74 79 80 Respiratory Rate Blood Pressure Blood Pressure [Left] O2 Sat by Pulse 97 98 97 Oximetry 07/03/18 07/03/18 07/03/18 01:22 01:27 01:32 Temperature Pulse Rate 74 81 84 Respiratory Rate Blood Pressure Blood Pressure [Left] O2 Sat by Pulse 97 97 97 Oximetry 07/03/18 07/03/18 07/03/18 01:37 01:42 01:47 Temperature Pulse Rate 94 H 98 H 82 Respiratory Rate Blood Pressure Blood Pressure [Left] O2 Sat by Pulse 97 97 98 Oximetry 07/03/18 07/03/18 07/03/18 01:52 01:57 02:02 Temperature Pulse Rate 85 81 86 Respiratory Rate Blood Pressure Blood Pressure [Left] O2 Sat by Pulse 98 98 98 Oximetry 07/03/18 07/03/18 07/03/18 02:07 02:12 02:17 Temperature Pulse Rate 83 76 106 H Respiratory Rate Blood Pressure Blood Pressure [Left] O2 Sat by Pulse 98 99 98 Oximetry 07/03/18 07/03/18 07/03/18 02:22 02:27 02:32 Temperature Pulse Rate 97 H 75 84 Respiratory Rate Blood Pressure Blood Pressure [Left] O2 Sat by Pulse 98 98 98 Oximetry 07/03/18 07/03/18 07/03/18 02:37 02:42 02:47 Temperature Pulse Rate 85 79 82 Respiratory Rate Blood Pressure Blood Pressure [Left] O2 Sat by Pulse 98 97 97 Oximetry 07/03/18 07/03/18 07/03/18 02:52 02:57 03:02 Temperature Pulse Rate 75 82 87 Respiratory Rate Blood Pressure Blood Pressure [Left] O2 Sat by Pulse 98 98 98 Oximetry 07/03/18 07/03/18 07/03/18 03:07 03:12 03:17 Temperature Pulse Rate 89 91 H 92 H Respiratory Rate Blood Pressure Blood Pressure [Left] O2 Sat by Pulse 98 98 98 Oximetry 07/03/18 07/03/18 07/03/18 03:22 03:27 03:32 Temperature Pulse Rate 94 H 86 89 Respiratory Rate Blood Pressure Blood Pressure [Left] O2 Sat by Pulse 98 98 98 Oximetry 07/03/18 07/03/18 07/03/18 03:35 03:37 03:42 Temperature Pulse Rate 94 H 69 Respiratory 18 Rate Blood Pressure Blood Pressure [Left] O2 Sat by Pulse 99 98 Oximetry 07/03/18 07/03/18 07/03/18 03:47 03:52 03:57 Temperature Pulse Rate 75 75 74 Respiratory Rate Blood Pressure Blood Pressure [Left] O2 Sat by Pulse 97 99 100 Oximetry 07/03/18 07/03/18 07/03/18 04:02 04:07 04:12 Temperature Pulse Rate 73 75 74 Respiratory Rate Blood Pressure Blood Pressure [Left] O2 Sat by Pulse 98 98 98 Oximetry 07/03/18 07/03/18 07/03/18 04:17 04:22 04:27 Temperature Pulse Rate 75 71 77 Respiratory Rate Blood Pressure Blood Pressure [Left] O2 Sat by Pulse 98 98 98 Oximetry 07/03/18 07/03/18 07/03/18 04:32 04:37 04:42 Temperature Pulse Rate 74 76 80 Respiratory Rate Blood Pressure Blood Pressure [Left] O2 Sat by Pulse 98 98 99 Oximetry 07/03/18 07/03/18 07/03/18 04:47 04:52 04:57 Temperature Pulse Rate 86 81 84 Respiratory Rate Blood Pressure Blood Pressure [Left] O2 Sat by Pulse 98 98 98 Oximetry 07/03/18 07/03/18 07/03/18 05:02 05:07 05:12 Temperature Pulse Rate 83 70 72 Respiratory Rate Blood Pressure Blood Pressure [Left] O2 Sat by Pulse 98 98 99 Oximetry 07/03/18 07/03/18 07/03/18 05:17 05:22 05:27 Temperature Pulse Rate 76 80 80 Respiratory Rate Blood Pressure Blood Pressure [Left] O2 Sat by Pulse 99 100 100 Oximetry 07/03/18 07/03/18 07/03/18 05:32 05:37 05:42 Temperature Pulse Rate 78 72 81 Respiratory Rate Blood Pressure Blood Pressure [Left] O2 Sat by Pulse 99 99 99 Oximetry 07/03/18 07/03/18 07/03/18 05:47 05:52 05:57 Temperature Pulse Rate 76 78 77 Respiratory Rate Blood Pressure Blood Pressure [Left] O2 Sat by Pulse 98 98 98 Oximetry 07/03/18 07/03/18 07/03/18 06:02 06:07 06:12 Temperature Pulse Rate 70 72 72 Respiratory Rate Blood Pressure Blood Pressure [Left] O2 Sat by Pulse 98 98 99 Oximetry 07/03/18 07/03/18 07/03/18 06:17 06:22 06:25 Temperature Pulse Rate 77 74 70 Respiratory Rate Blood Pressure Blood Pressure [Left] O2 Sat by Pulse 99 98 92 Oximetry 07/03/18 07/03/18 07/03/18 06:27 06:32 06:37 Temperature Pulse Rate 86 87 78 Respiratory Rate Blood Pressure Blood Pressure [Left] O2 Sat by Pulse 99 99 98 Oximetry 07/03/18 07/03/18 07/03/18 06:42 06:47 06:52 Temperature Pulse Rate 69 85 81 Respiratory Rate Blood Pressure Blood Pressure [Left] O2 Sat by Pulse 99 99 99 Oximetry 07/03/18 07/03/18 07/03/18 06:57 07:02 07:07 Temperature Pulse Rate 80 72 78 Respiratory Rate Blood Pressure Blood Pressure [Left] O2 Sat by Pulse 98 99 100 Oximetry 07/03/18 07/03/18 07/03/18 07:12 07:17 07:22 Temperature Pulse Rate 73 77 79 Respiratory Rate Blood Pressure Blood Pressure [Left] O2 Sat by Pulse 99 99 99 Oximetry 07/03/18 07/03/18 07/03/18 07:27 07:32 07:37 Temperature Pulse Rate 72 74 73 Respiratory Rate Blood Pressure Blood Pressure [Left] O2 Sat by Pulse 98 99 99 Oximetry 07/03/18 07/03/18 07/03/18 07:42 07:47 07:52 Temperature Pulse Rate 81 87 82 Respiratory Rate Blood Pressure Blood Pressure [Left] O2 Sat by Pulse 100 99 100 Oximetry - Exam Breasts: normal Cardiovascular: Regular rate Lungs: Clear to auscultation, Normal air movement Abdomen: Present: normal appearance, soft Uterus: Present: normal Uterine Contraction Monitor Mode: Palpation Uterine Contraction Pattern: Absent Uterine Tone Measurement Phase: Resting Extremities: normal Deep Tendon Reflex Grade: Normal +2 - Labs Labs: Abnormal Labs 07/02/18 07/02/18 07/02/18 15:50 15:50 16:15 MCV 69 L MCH 23 L RDW 16.0 H Lymph % (Auto) 12.0 L Seg Neutrophils % 81.1 H Seg Neutrophils # 7.9 H Sodium 136 L Potassium 3.4 L Carbon Dioxide 21 L BUN 4 L Creatinine 0.5 L Urine WBC (Auto) 7.0 H Laboratory Results - last 24 hr 07/02/18 07/02/18 07/02/18 15:50 15:50 15:50 WBC 9.8 RBC 4.91 Hgb 11.1 Hct 33.6 MCV 69 L MCH 23 L MCHC 33 RDW 16.0 H Plt Count 192 Lymph % (Auto) 12.0 L [place] % (Auto) 5.2 Eos % (Auto) 1.2 Baso % (Auto) 0.5 Lymph # 1.2 [place] # 0.5 Eos # 0.1 Baso # 0.0 Seg Neutrophils % 81.1 H Seg Neutrophils # 7.9 H Sodium 136 L Potassium 3.4 L Chloride 100.1 Carbon Dioxide 21 L Anion Gap 18 BUN 4 L Creatinine 0.5 L Estimated GFR > 60 BUN/Creatinine Ratio 8 Glucose 92 Calcium 9.3 Total Bilirubin 0.30 AST 16 ALT 8 Alkaline Phosphatase 118 Total Protein 7.5 Albumin 4.0 Albumin/Globulin Ratio 1.1 Urine Color Urine Turbidity Urine pH Ur Specific [place] Urine Protein Urine Glucose (UA) Urine Ketones Urine Blood Urine Nitrite Urine Bilirubin Urine Urobilinogen Ur Leukocyte Esterase Urine WBC (Auto) Urine RBC (Auto) U Epithel Cells (Auto) Urine Bacteria (Auto) Hyaline Casts Urine Mucus Urine Opiates Screen Urine Methadone Screen Ur Barbiturates Screen Ur Phencyclidine Scrn Ur Amphetamines Screen U Benzodiazepines Scrn Urine Cocaine Screen U Marijuana (THC) Screen Drugs of Abuse Note Blood Type O NEGATIVE Antibody Screen Negative 07/02/18 07/02/18 16:15 16:15 WBC RBC Hgb Hct MCV MCH MCHC RDW Plt Count Lymph % (Auto) [place] % (Auto) Eos % (Auto) Baso % (Auto) Lymph # [place] # Eos # Baso # Seg Neutrophils % Seg Neutrophils # Sodium Potassium Chloride Carbon Dioxide Anion Gap BUN Creatinine Estimated GFR BUN/Creatinine Ratio Glucose Calcium Total Bilirubin AST ALT Alkaline Phosphatase Total Protein Albumin Albumin/Globulin Ratio Urine Color [place]ha Urine Turbidity Clear Urine pH 6.0 Ur Specific [place] 1.020 Urine Protein 30 mg/dl Urine Glucose (UA) Neg Urine Ketones 80 Urine Blood Mod Urine Nitrite Neg Urine Bilirubin Neg Urine Urobilinogen 2.0 Ur Leukocyte Esterase Neg Urine WBC (Auto) 7.0 H Urine RBC (Auto) 131.0 U Epithel Cells (Auto) 2.0 Urine Bacteria (Auto) 1+ Hyaline Casts 1 Urine Mucus 3+ Urine Opiates Screen Presumptive negative Urine Methadone Screen Presumptive negative Ur Barbiturates Screen Presumptive negative Ur Phencyclidine Scrn Presumptive negative Ur Amphetamines Screen Presumptive negative U Benzodiazepines Scrn Presumptive negative Urine Cocaine Screen Presumptive negative U Marijuana (THC) Screen Presumptive positive Drugs of Abuse Note Disclamer Blood Type Antibody Screen
[2018-07-03] MEDS: LACTATED RINGERS 1,000 ML IV SCH (09:20)
[2018-07-03] MEDS ORDERED: PRENATAL VITAMIN PO SCH (10:00)
--- NOTE | 2018-07-03 11:36 | Ultrasound Report ---
ULTRASOUND RENAL BILATERAL HISTORY: Hematuria, hydronephrosis. TECHNIQUE: transabdominal ultrasound with color Doppler interrogation. FINDINGS: Scans of the kidneys show normal renal contours. There is normal central calyceal clustering and good preservation of the cortical thickness. There is no evidence of mass or hydronephrosis. The views of the bladder and the region of the ureters appear normal. IMPRESSION: Unremarkable renal ultrasound. Mild left hydronephrosis has resolved since 07/02/18.
--- NOTE | 2018-07-03 12:14 | Consultation ---
History of Present Illness - Reason for Consult Consult date: 07/03/18 - History of Present Illness This is a 27 yof IUP@ 23w3d EGA who was recently admitted with the same symptoms associated the hematuria. She received IV Rocephin for presume pyelonephritis. Renal US was normal. Her pain improved and she was allowed home on Macrobid. She presented to the OB office for her routine visit still with (L) flank pain (07/15). UA revealed 3+ blood and 2+ protein and large ketones. UC was found to be negative at [facility] and she was given a referral to a Urologist for evaluation and instructed to return to the office 4weeks. She now presents complaining of severe back pain and urinary retention. She's again admitted and will be evaluated for kidney stones. Repeat us (07-03-18) today - normal abd & flank - no pain A/P flank pain non specific - may have past stone vs UTI normal us now dc townsend---ok to dc home f/u after delivery or sooner if needed no gu intervention needed Medications and Allergies Allergies Allergy/AdvReac Type Severity Reaction Status Date / Time No Known Allergies Allergy Verified 03/28/17 07:34 Home Medications Medication Instructions Recorded Confirmed Last Taken Type Vit-Fe Fumar-FA [ 1 tab PO QDAY 03/28/17 07/02/18 07/01/18 09:00 History Vitamin] Nitrofurantoin [place]/M-Cryst 100 mg PO Q12HR #14 capsule 06/27/18 07/02/18 07/02/18 09:00 Rx [Macrobid CAP] Active Meds: Active Medications Acetaminophen (Tylenol) 650 mg PO Q6H PRN PRN Reason: Pain MILD(1-3)/Fever >100.5/PRIETO Last Admin: 07/03/18 03:35 Dose: 650 mg Documented by: Al Hydrox/Mg Hydrox/Simethicone (Alum-Mag Hydrox-Simeth [phone]/5ml) 30 ml PO Q6H PRN PRN Reason: Indigestion Diphenhydramine HCl (Benadryl) 25 mg PO Q6H PRN PRN Reason: Itching Docusate Sodium (Colace) 100 mg PO Q12H PRN PRN Reason: Constipation Last Admin: 07/02/18 17:29 Dose: 100 mg Documented by: Fentanyl (Sublimaze) 100 mcg IV ONCE PRN PRN Reason: Pain , Severe (7-10) Lactated Ringer's (Lactated Ringers) 1,000 mls @ 125 mls/hr IV DIRECT [facility] Last Admin: 07/02/18 21:16 Dose: 125 mls/hr Documented by: Magnesium Hydroxide (Milk Of Magnesia) 30 ml PO QHS PRN PRN Reason: Laxative Effect Multivitamins/Iron/Calcium ( Vitamin) 1 each PO QDAY [facility] Last Admin: 07/03/18 11:23 Dose: 1 each Documented by: Ondansetron HCl (Zofran) 4 mg IV Q6H PRN PRN Reason: Nausea And Vomiting Simethicone (Mylicon) 80 mg PO Q6H PRN PRN Reason: Gas pain Zolpidem Tartrate (Ambien) 5 mg PO QHS PRN PRN Reason: Sleep Last Admin: 07/02/18 22:39 Dose: 5 mg Documented by: Exam - Constitutional Vitals: Temp Pulse Resp BP Pulse Ox 98.3 F 76 18 110/63 99 07/03/18 09:15 07/03/18 11:26 07/03/18 09:15 07/03/18 11:26 07/03/18 09:22 Results - Labs CBC & Chem 7: 07/02/18 15:50 07/02/18 15:50 Labs: Abnormal lab results 07/02/18 07/02/18 07/02/18 Range/Units 15:50 15:50 16:15 MCV 69 L (79-97) fl MCH 23 L (28-32) pg RDW 16.0 H (13.2-15.2) % Lymph % (Auto) 12.0 L (13.4-35.0) % Seg Neutrophils % 81.1 H (40.0-70.0) % Seg Neutrophils # 7.9 H (1.8-7.7) K/mm3 Sodium 136 L (137-145) mmol/L Potassium 3.4 L (3.6-5.0) mmol/L Carbon Dioxide 21 L (22-30) mmol/L BUN 4 L (7-17) mg/dL Creatinine 0.5 L (0.7-1.2) mg/dL Urine WBC (Auto) 7.0 H (0.0-6.0) /HPF
--- NOTE | 2018-07-03 14:12 | Discharge Summary ---
Providers - Providers Date of discharge: 07/03/18 (d/c home) Attending physician: RANDY WALKER 07/02/18 15:32 Consult to Physician [CONS] Stat Comment: Consulting Provider: RALPH CASTILLO Physician Instructions: Reason For Exam: Kidney Stones Primary care physician: RANDY WALKER Hospitalization Reason for admission: observation Pertinent studies: repeat renal scan normal Hospital course: observation hematuria and flank pain - cleared for d/c by Dr. Oden. f/u after delivery Condition at discharge: Good Disposition: DC-01 TO HOME OR SELFCARE - Discharge Diagnoses (1) 23 weeks gestation of Status: Acute (2) Hematuria Status: Acute Qualifiers: Hematuria type: unspecified type Qualified Code(s): R31.9 - Hematuria, unspecified Plan - Provider Discharge Summary Activity: routine Diet: routine Instructions: routine Additional instructions: [] Smoking cessation referral if applicable(refer to patient education folder for contact #) [] Refer to [facility]'s [facility] Booklet Call your doctor immediately for: * Fever > 100.5 * Heavy vaginal bleeding ( >1 pad per hour) * Severe persistent headache * Shortness of breath * Reddened, hot, painful area to leg or breast * Drainage or odor from incision. * Keep incision clean and dry at all times and follow doctor's instructions regarding bathing/showering - Follow up plan Follow up: RANDY WALKER MD [Primary Care Provider] - 07/16/18 (keep scheduled appointment in the office. call for any questions or concerns. )
[2018-07-03 15:52] VITALS: BP 109/70
== END 2018-07-03 16:50 | disposition home or self-care (01) ==
LOC: TRG 15:21 → LD 15:27 → TRG 07-03 16:50
PROVIDERS: ATTEND Obstetrics & Gynecology
DX: O47.02 False labor before 37 completed weeks of gestation, second trimester (principal); Z3A.23 23 weeks gestation of pregnancy
CPT/HCPCS: 36415; 76770; 80053; 80307; 81001; 85025; 86850; 86900; 86901; 87086; J3010; J7120

== ENCOUNTER 2018-09-30 08:01 | Outpatient (CLI) | payer OTHER ==
[2018-09-30] MEDS ORDERED: LACTATED RINGERS 1,000 ML IV ONE ×2 (08:37→11:41)
[2018-09-30] MEDS ORDERED: ZOFRAN IV ONE (09:30)
[2018-09-30 09:37] LABS: Bacteria,Urine 1+ /HPF (Negative); Bilirubin,Urine NEG (Negative); Blood,Urine NEG (Negative); Color,Urine Yellow (Yellow); Mucus,Urine FEW /HPF; Protein,Urine <15 mg/dL mg/dL (Negative)
[2018-09-30 11:15] VITALS: BP 122/73
[2018-09-30] MEDS ORDERED: BRETHINE IVP ONE (11:47)
[2018-09-30] MEDS ORDERED: BRETHINE SUB-Q ONE (12:22)
--- NOTE | 2018-09-30 14:56 | Ultrasound Report ---
ULTRASOUND BIOPHYSICAL PROFILE: History: Decreased movement Technique: Transabdominal ultrasound with Doppler interrogation. 2 - breathing movements 2 - movements 2 - posture and tone 2 - Qualitative amniotic fluid volume 8 - TOTAL SCORE OF POSSIBLE 8 Heart Rate (bpm) 156
== END 2018-09-30 13:46 | disposition home or self-care (01) ==
LOC: TRG 08:01
PROVIDERS: ATTEND Obstetrics & Gynecology
DX: O62.9 Abnormality of forces of labor, unspecified (principal); O21.2 Late vomiting of pregnancy; O36.8190 Decreased fetal movements, unspecified trimester, not applicable or unspecified; O26.893 Other specified pregnancy related conditions, third trimester; R42 Dizziness and giddiness; Z3A.36 36 weeks gestation of pregnancy
CPT/HCPCS: 59025; 76819; 81001; 96361; 96365; 96372; 96375; J2405; J3105; J7120; 96360; 96374

== ENCOUNTER 2018-10-09 11:20 | Outpatient (CLI) | payer OTHER ==
[2018-10-09] MEDS ORDERED: LACTATED RINGERS 1,000 ML IV ONE (11:43)
--- NOTE | 2018-10-09 13:54 | Ultrasound Report ---
LIMITED OBSTETRIC ULTRASOUND WITH BIOPHYSICAL PROFILE HISTORY: Decreased movement COMPARISON: None. TECHNIQUE: Obstetric sonogram performed for biophysical profile assessment. FINDINGS: Gestation: [place] Presentation: Currentlycephalic Amniotic Fluid Index: 14.9 cm Placenta: Anterior in location and free from the cervical os. Grade 2. No evidence for abruption. ANATOMY: Detailed anatomic survey was not requested. heart rate is 145 beats per minute. BIOPHYSICAL PROFILE: Movement: 2 Tone: 2 Breathin Amniotic Fluid: 2 Total: 8 out of 8 IMPRESSION Biophysical Profile 11/12. Signer Name: Bebo Brown Jr, MD Signed: 10/09/2018 1:50 PM Workstation Name: [id number]
[2018-10-09] MEDS ORDERED: VISTARIL PO ONE (13:56)
[2018-10-09] MEDS ORDERED: PHENERGAN PO ONE (14:30)
== END 2018-10-09 14:35 | disposition home or self-care (01) ==
LOC: TRG 11:20
PROVIDERS: ATTEND Obstetrics & Gynecology
DX: O47.1 False labor at or after 37 completed weeks of gestation (principal); Z3A.38 38 weeks gestation of pregnancy; W19.XXXA Unspecified fall, initial encounter; Y93.89 Activity, other specified; Y92.89 Other specified places as the place of occurrence of the external cause; Y99.8 Other external cause status
CPT/HCPCS: 76815; 76819; Q0169; Q0177

== ENCOUNTER 2018-10-15 04:13 | Inpatient (IN) | payer OTHER ==
[2018-10-15] MEDS ORDERED: LACTATED RINGERS 2,000 ML ONE (04:50)
--- NOTE | 2018-10-15 04:52 | History and Physical Report ---
History of Present Illness Date of examination: 10/15/18 Date of admission: 10/15/18 04:13 History of present illness: Patient presented to labor and delivery complaints of ruptured membranes ap proximately 3:00 this a.m. with irregular contractions. Her initial exam in triage found to be grossly ruptured with cervix 3-4 cm. Patient scheduled section for October 23 due to previous section and desires permanent sterilization. Menstrual History Regularity: regular Duration: 3 LMP: 01/19/2018 LMP reliability: definite LMP character: normal test type: urine test Date: 05/22/2018 BC at conception: none EDC Calculations LMP: 10/26/2018 EDC Confirmation: 10/26/2018 Past History : 7 Term Births: 4 Premature Births: 0 Living Children: 4 Para: 4 Mult. Births: 0 Prev : 0 Prev. attempt? 0 Aborta: 2 Elect. Ab: 0 Spont. Ab: 2 Ectopics: 0 # 1 Delivery date: 2008 Weeks Gestation: ? Delivery type: SAB Comments: No D&C # 2 Delivery date: 04/21/2009 Weeks Gestation: 40 labor: no Delivery type: Hours of labor: 15 Anesthesia type: epidural Delivery location: [facility] Sex: Female weight: 5-13 Name: Rip # 3 Delivery date: 10/30/2010 Weeks Gestation: 38 labor: no Delivery type: Hours of labor: 8-10 Anesthesia type: epidural Delivery location: [facility] Sex: Male weight: ?? Name: Harjinder # 4 Delivery date: 12/2014 Weeks Gestation: 11 Delivery type: SAB Delivery location: [facility] Comments: D&C # 5 Delivery date: 10/27/2015 Weeks Gestation: 38 labor: no Delivery type: Hours of labor: 8 Anesthesia type: epidural Delivery location: [facility] Sex: Male weight: 5-13 Name: Salinas # 6 Delivery date: 04/04/2017 Weeks Gestation: 38 Delivery type: Anesthesia type: spinal Delivery location: [facility] Sex: male weight: 6.25 Comments: Cat 3 FHT's Past Medical History: Negative Past Medical History Past Surgical History: D&C: (04/04/2017) Past Medical History Abnormal PAP: negative Family Hx: DM - mother HTN - mother, sister, brother Social Hx: Stay at home Patient is Infection History Hx of STD: none HIV Risk Eval: no Hepatitis B Risk Eval: low risk Personal hx. of genital herpes: no Partner hx. of genital herpes: no Rash, Viral, or Febrile illness since last LMP? no Varicella/Chicken Pox Status: Previous Disease Genetic History Congenital Heart Defect: Mom: no Dad: no Jill Disease: Mom: no Dad: no Thalassemia Mom: no Dad: no Neural Tube Defect Mom: no Dad: no Down's Syndrome Mom: no Dad: no Jose-Sachs Mom: no Dad: no Sickle Cell Disease/Trait Mom: no Dad: no Hemophilia Mom: no Dad: no Muscular Dystrophy Mom: no Dad: no Cystic Fibrosis Mom: no Dad: no Lisa Chorea Mom: no Dad: no Mental Retardation Mom: no Dad: no Fragile X Mom: no Dad: no Other Genetic/Chromosomal Disorder Mom: no Dad: no Child w/other defect Mom: no Dad: no Enviromental Exposures Xray Exposure: no Medication, drug, or alcohol use since LMP: no Chemical/Other Exposure: no Exposure to Cat Liter: no Hx of Parvovirus (Fifth Disease): no Occupational Exposure to Children: none Active Medications (reviewed today): Current Allergies (reviewed today): No known allergies Past History Past Medical History: other (see HPI) Past Surgical History: section, other (see HPI) 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) Family/Genetic History: other (see HPI) Social history: other (see HPI) - Obstetrical History Expected Date of Delivery: 10/26/18 Actual Gestation: 38 Week(s) 3 Day(s) : 7 Para: 4 Hx # Term Pregnancies: 4 Number of Pregnancies: 0 Spontaneous Abortions: 2 Induced : 0 Number of Living Children: 4 Medications and Allergies Allergies Allergy/AdvReac Type Severity Reaction Status Date / Time No Known Allergies Allergy Verified 09/30/18 08:24 Home Medications Medication Instructions Recorded Confirmed Last Taken Type Vit-Fe Fumar-FA [ 1 tab PO QDAY 03/28/17 09/30/18 07/01/18 09:00 History Vitamin] Famotidine [Pepcid] 1 tab PO DAILY 09/30/18 09/30/18 09/28/18 21:00 History 1 Metoclopramide [Reglan TAB] 1 tab PO BID 09/30/18 09/30/18 09/29/18 21:00 History 1 Ferrous Sulfate [Feosol 325 MG tab] 325 mg PO BID #60 tablet 10/15/18 Unknown Rx Ibuprofen [Motrin 800 MG tab] 800 mg PO Q6H PRN #30 tablet 10/15/18 Unknown Rx Lidocain2.5%/Prilocai2.5% [Emla] 5 gm TP ONCE #1 tube 10/15/18 Unknown Rx oxyCODONE /ACETAMINOPHEN [Percocet 1 - 2 tab PO Q4H PRN #30 tablet 10/15/18 Unknown Rx 5/325 mg] - Vital Signs Vital signs: Vital Signs Pulse BP 113 H 121/81 10/15/18 04:31 10/15/18 04:31 Temp Pulse Resp BP Pulse Ox 98.3 F 113 H 18 121/81 10/15/18 04:47 10/15/18 04:31 10/15/18 04:47 10/15/18 04:31 - Physical Exam Breasts: Positive: deferred Cardiovascular: Regular rate Lungs: Positive: Normal air movement Abdomen: Positive: normal appearance Vagina: Positive: normal moisture Cervix: Positive: other (per RN) Uterus: Positive: enlarged - Obstetrical FHR: category 1 Uterine Contraction Pattern: Irregular Uterine Contraction Intensity: Moderate Results Result Diagrams: 10/15/18 04:35 All other labs normal. Assessment and Plan - Patient Problems (1) Premature rupture of membranes Current Visit: Yes Status: Acute Qualifiers: PROM onset of labor timing: onset of labor within 24 hours of rupture PROM gestational age: full term Qualified Code(s): O42.02 - Full-term premature rupture of membranes, onset of labor within 24 hours of rupture (2) Encounter for sterilization Current Visit: Yes Status: Acute Plan to address problem: Patient desires permanent sterilization. She declined temporary contraceptives. She understands the risks of the surgery include bleeding infection possible damage to bowel bladder or ureters. She understands that this surgery would make her permanently sterile. She also understands the approximate 1% failure rate. The patient understands all the above and desires to proceed. (3) Previous delivery affecting , antepartum Current Visit: No Status: Acute Plan to address problem: Patient informed the risks of the surgery include bleeding possibly bleeding heavy enough to require blood transfusion, infection possible damage to bowel bladder ureter. All questions answered. Patient agrees to proceed
[2018-10-15] MEDS ORDERED: PEPCID IV ONE (04:53)
[2018-10-15] MEDS ORDERED: REGLAN IV ONE (04:53)
[2018-10-15] MEDS ORDERED: BICITRA PO ONE (04:53)
[2018-10-15] MEDS ORDERED: ANCEF/STERILE WATER 2 GM/20 ML 2 GM/20 ML SYRINGE IV NR (05:00)
[2018-10-15] MEDS ORDERED: PITOCin/NS 20 UNIT/1000ML DRIP 20 UNITS/1,000 ML BAG IV SCH ×2 (05:00→09:30)
[2018-10-15] MEDS ORDERED: LACTATED RINGERS 1,000 ML IV SCH (05:00)
[2018-10-15 05:02] LABS: Hematocrit 30.1 % (30.3-42.9); Hemoglobin 9.7 gm/dl (10.1-14.3); Mean Corpuscular HGB Conc 32 % (30-34); Red Blood Count 5.02 M/mm3 (3.65-5.03)
[2018-10-15 05:04] LABS: Mean Corpuscular Volume 60 fl (79-97); Platelet Count 148 K/mm3 (140-440)
--- NOTE | 2018-10-15 05:25 | Anesthesia Consultation ---
Anesthesia Consult and Med Hx Date of service: 10/15/18 - Airway Anesthetic Teeth Evaluation: Good Mallampati Class: Class II - Pulmonary Exam CTA: Yes - Cardiac Exam Cardiac Exam: RRR - Pre-Operative Health Status ASA Pre-Surgery Classification: ASA2, Emergency Proposed Anesthetic Plan: Spinal - Pulmonary Hx Asthma: No - Cardiovascular System Hx Hypertension: No - Central Nervous System Hx Seizures: No Hx Psychiatric Problems: No - Endocrine Hx Renal Disease: Yes (kidney) Hx Hypothyroidism: No Hx Hyperthyroidism: No - Hematic Hx Anemia: No Hx Sickle Cell Disease: No - Other Systems Hx Alcohol Use: No
--- NOTE | 2018-10-15 05:26 | Anesthesia Day of Surgery ---
Anesthesia Day of Surgery - Day of Surgery Patient Examined: Yes Patient H&P Reviewed: Yes Patient is NPO: Yes
[2018-10-15] MEDS ORDERED: SUBLIMAZE ONE (05:30)
[2018-10-15] MEDS ORDERED: ZOFRAN ONE (05:30)
[2018-10-15] MEDS ORDERED: WATER FOR IRRIG STERILE IR ONE (06:20)
[2018-10-15] MEDS ORDERED: NACL 0.9% IR ONE (06:20)
[2018-10-15] MEDS ORDERED: TORADOL ONE (06:27)
[2018-10-15] MEDS ORDERED: BENADRYL ONE (06:27)
[2018-10-15] MEDS ORDERED: DILAUDID ONE (07:00)
--- NOTE | 2018-10-15 07:16 | Post Anesthesia Evaluation ---
- Post Anesthesia Evaluation Patient Participated: Yes Airway Patent: Yes Stable Respiratory Function: Yes Nausea/Vomiting: No Temp > 96.8F: Yes Pain Manageable: Yes Adequeate Hydration: Yes Anesthesia Complications: No Block Receding Appropriately: Yes Patient on Ventilator: No
--- NOTE | 2018-10-15 07:22 | Operative Report ---
Operative Report Operative Report: Date of procedure: 10/15/2018 Pre-operative diagnosis: Intrauterine at 38 weeks with premature rupt ure of membranes, previous section, active labor and desires permanent sterilization Post-operative diagnosis: Same Procedure name(s): Repeat low transverse section with bilateral tubal ligation modified [place] type Surgeon: Matt Gay MD Procurement Assistant: Anesthesia: Spinal EBL: 500 mL Complications: None Findings: Patient with very thin lower uterine segment normal appearing uterus with normal-appearing tubes and ovaries bilaterally. Male infant weighing 6 lbs. 7 oz. Apgars 8 at 1 minute 9 at 5 minutes Specimen(s): Portion of left and right fallopian tube. Procedure: The patient was brought to the operating room. A spinal was placed without any complications. She was then placed in left lateral tilt. Prepped and draped in the usual sterile manner. After testing for adequate anesthesia level, a Pfannenstiel incision was made through her previous scar. This incision was taken down to the fascia. The fascia was then nicked in the midline. This incision was extended out laterally with Hayward scissors. The fascia was then sharply and bluntly from the underlying rectus muscles. The rectus muscles were bluntly and sharply . The peritoneum was then entered with the dry cleaning machine operator's fingers. This incision was spread vertically with care not to damage the bladder below. The Nader self-retaining tractor was then placed without any difficulty. The bladder flap was then formed sharply and bluntly with Metzenbaum scissors. A transverse incision was made in lower uterine segment. This incision was extended laterally with the operators fingers. The amniotic sac was then entered bluntly with the dry cleaning machine operator's fingers. The was delivered from the vertex position. Bulb suction on the mother's abdomen. Cord was double clamped and cut. The infant was then passed to the nursery personnel who were in attendance. The above scores were given by the nursery personnel. The placenta was then bluntly removed. The uterus was then externalized and wiped clean the remaining products. The uterine incision was closed in layers. The first incision was closed in a locking manner using 0 Vicryl. This was followed by imbricating stitch also with 0 Vicryl. Attention was then switched to the patient's fallopian tubes. Each fallopian tube was identified by its fimbriated end. A portion of each tube was grabbed with the Ludwin clamp approximately 2-3 cm from the cornua. Each loop was double ligated with 0 plain suture. The loop were cut with Metzenbaum scissors. Each stump was found to be hemostatic and ca uterized with the Bovie. Attention was then switched back to the uterine closure. This closure was hemostatic. The bladder flap was copiously irrigated and found to be hemostatic. The pelvis was copiously irrigated and found to be hemostatic. The uterus was then placed back to the patient's abdomen. The retractors were removed. The rectus muscles were inspected and found to be hemostatic. The fascia was then closed in a running manner using 0 Vicryl. This incision was hemostatic irrigation Bovie. The skin was reapproximated with 4-0 Vicryl subcuticularly. The patient tolerated procedure well. Her urine was clear. The was admitted to the well baby nursery. The patient was accompanied to recovery room in good condition. Instrument count correct 3.
[2018-10-15] MEDS ORDERED: NUBAIN IV PRN (07:30)
[2018-10-15] MEDS ORDERED: PHENERGAN PO PRN (07:30)
[2018-10-15] MEDS ORDERED: MORPHINE IV PRN (07:30)
[2018-10-15] MEDS ORDERED: NARCAN 0.4 MG/1 ML IV PRN ×2 (07:30→09:30)
[2018-10-15] MEDS ORDERED: PHENERGAN PR PRN (07:30)
[2018-10-15] MEDS ORDERED: ZOFRAN IV PRN (07:30)
[2018-10-15] MEDS ORDERED: DILAUDID IV PRN ×2 (07:30)
[2018-10-15] MEDS ORDERED: SODIUM CHLORIDE FLUSH SYRINGE 10 ML IV PRN ×2 (08:00→09:30)
[2018-10-15] MEDS ORDERED: TUCKS PAD TP PRN (09:30)
[2018-10-15] MEDS ORDERED: LANSINOH TP PRN (09:30)
[2018-10-15] MEDS: D5LR 1,000 ML IV SCH ×2 (10:29→19:24)
[2018-10-15] MEDS: NORCO 5/325 PO PRN ×2 (10:58→16:24)
[2018-10-15] MEDS: TORADOL IV SCH ×3 (12:24→22:37)
[2018-10-15] MEDS: ANCEF/NS 1 GM/50 ML 1 GM/50 ML BAG IV SCH ×2 (16:25→22:35)
[2018-10-15] MEDS ORDERED: NORCO 5/325 PO PRN (18:19)
[2018-10-15 18:23] LABS: Hematocrit 22.6 % (30.3-42.9); Hemoglobin 7.3 gm/dl (10.1-14.3)
[2018-10-16] MEDS: TORADOL IV SCH ×2 (01:46→04:00)
[2018-10-16] MEDS: NORCO 5/325 PO PRN ×3 (05:51→15:01)
[2018-10-16] MEDS ORDERED: BOOSTRIX IM ONE (06:00)
[2018-10-16] MEDS: FEOSOL PO SCH (08:28)
[2018-10-16] MEDS: PRENATAL VITAMIN PO SCH (08:28)
--- NOTE | 2018-10-16 08:45 | Progress Note ---
Assessment and Plan Patient doing well, no complaints. Lochia scant, fundus firm, VSSAF, postop H&H 7.3/22.6, incision D&I, fe supplementation ordered. Continue postop pathway, pt requests d/c home tomorrow if possible. - Patient Problems (1) Anemia Current Visit: Yes Status: Acute (2) delivery delivered Current Visit: Yes Status: Acute Subjective - Subjective Date of service: 10/16/18 Principal diagnosis: POD #1 s/p repeat c/s Patient reports: appetite normal, voiding normally, pain well controlled, flatus, ambulating normally, no dizzy ambulation, no nauseated [place]: doing well, bottle feeding Objective - Vital Signs Latest vital signs: Vital Signs Temp Pulse Resp BP BP Pulse Ox 10/16/18 06:51 18 10/16/18 05:51 18 10/16/18 04:09 98.3 F 80 20 122/70 99 10/16/18 04:00 16 10/16/18 00:03 97.7 F 82 20 116/53 98 10/16/18 00:00 97.7 F 20 116/53 10/15/18 23:02 18 10/15/18 22:02 18 10/15/18 21:08 89 99 10/15/18 21:06 97.9 F 20 120/59 10/15/18 18:58 18 10/15/18 18:28 20 10/15/18 16:24 20 10/15/18 16:14 98.2 F 69 20 117/78 100 10/15/18 16:00 98.0 F 66 20 117/78 100 10/15/18 12:24 20 10/15/18 12:21 97.8 F 81 20 121/67 99 10/15/18 10:58 20 Intake and Output 10/15/18 10/16/18 10/16/18 23:59 07:59 15:59 Intake Total 2250 480 Output Total 500 Balance 2250 -20 Intake: IV 1050 ANCEF/NS 1 GM/50 ML 1 gm 50 In 50 ml @ 100 mls/hr IV Q8H DOMINGO Rx#:[id number] D5lr 1,000 ml @ 125 mls/ 1000 hr IV DIRECT DOMINGO Rx#: [id number] Oral 1200 240 Intake, Free Water 240 Output: Urine 500 Void 500 Other: Total, Intake Amount 1200 240 Total, Output Amount 500 # Voids Void 4 1 # Bowel Movements 0 - Exam Breasts: Present: normal Cardiovascular: Present: Regular rate Lungs: Present: Clear to auscultation, Normal air movement Abdomen: Present: normal appearance, soft Vulva: both: normal Uterus: Present: normal, firm, fundal height at umbilicus Extremities: Present: normal Deep Tendon Reflex Grade: Normal +2 Incision: Present: normal, dry, intact - Labs Labs: Abnormal lab results 10/15/18 Range/Units 18:02 Hgb 7.3 L (10.1-14.3) gm/dl Hct 22.6 L D (30.3-42.9) %
[2018-10-16] MEDS ORDERED: NORCO 5/325 PO PRN (14:00)
[2018-10-16] MEDS: IBUPROFEN PO PRN (15:01)
[2018-10-17] MEDS: IBUPROFEN PO PRN ×2 (01:51→12:00)
[2018-10-17] MEDS: NORCO 5/325 PO PRN ×2 (01:52→11:04)
[2018-10-17] MEDS: PRENATAL VITAMIN PO SCH (10:59)
[2018-10-17] MEDS: FEOSOL PO SCH (12:00)
--- NOTE | 2018-10-17 13:55 | Discharge Summary ---
Providers - Providers Date of Admission: 10/15/18 04:13 Date of discharge: 10/17/18 (patient desires discharge today, cleared by Sandra) Attending physician: ARIANNA CHRISTIANSON 10/15/18 09:17 Consult to Lead Engineer [CONS] Routine Reason For Exam: Primary care physician: ARIANNA CHRISTIANSON Hospitalization Reason for admission: repeat c/s with BTL Condition: Good Pertinent studies: post delivery H&H 7.3/22.6 Procedures: repeat c/s with BTL Hospital course: uncomplicated c/s and post op course Disposition: DC-01 TO HOME OR SELFCARE Core Measure Documentation - Palliative Care Palliative Care/ Comfort Measures: Not Applicable - Core Measures Any of the following diagnoses?: none Exam - Constitutional Vitals: Temp Pulse Resp BP Pulse Ox 97.7 F 67 20 124/66 100 10/17/18 07:59 10/17/18 07:59 10/17/18 07:59 10/17/18 07:59 10/17/18 07:59 General appearance: Present: no acute distress, well-nourished - EENT Eyes: Present: PERRL ENT: hearing intact, clear oral mucosa - Neck Neck: Present: supple, normal ROM - Respiratory Respiratory effort: normal Respiratory: bilateral: CTA - Cardiovascular Rhythm: regular Heart Sounds: Present: S1 & S2. Absent: rub, click - Extremities Extremities: pulses symmetrical, No edema Peripheral Pulses: within normal limits - Abdominal General gastrointestinal: Present: soft, non-tender, non-distended, normal bowel sounds Female genitourinary: Present: normal - Integumentary Integumentary: Present: clear, warm, dry - Musculoskeletal Musculoskeletal: gait normal, strength equal bilaterally - Psychiatric Psychiatric: appropriate mood/affect, intact judgment & insight - Neurologic Neurologic: CNII-XII intact, moves all extremities - Additional findings Additional findings: Patient resting in bed, reports feeling well, she denies any complaints or concerns. Fundus is firm, ML, U/1, vaginal bleeding is small, patient denies any heavy bleeding or clots. Incision is well-approximated, healing well, no bleeding or drainage noted, no s/s infection. Incision care/hygiene DWP. Patient reports pain is well controlled with medications. Reviewed post delivery H&H with patient, she denies any dizziness or feeling faint with ambulation or position changes. Fe ordered. VSSAF. Plan Activity: advance as tolerated Diet: regular Wound: open to air, keep clean and dry Follow up with: ARIANNA CHRISTIANSON MD [Primary Care Provider] - 7 Days (Congratulations! Please call [phone] to schedule your post op incision appointment in 1 week. Please schedule your son's circumcision appointment in 1 week. Call with any questions or concerns. ) Prescriptions: Docusate Sodium [Colace] 100 mg PO BID PRN #60 capsule PRN Reason: Constipation Lidocain2.5%/Prilocai2.5% [Emla] 5 gm TP ONCE #1 tube Ferrous Sulfate [Feosol 325 MG tab] 325 mg PO BID #60 tablet Ibuprofen [Motrin 800 MG tab] 800 mg PO Q6H PRN #30 tablet PRN Reason: Pain oxyCODONE /ACETAMINOPHEN [Percocet 5/325 mg] 1 - 2 tab PO Q4H PRN #30 tablet PRN Reason: Pain, Moderate
[2018-10-17 19:22] VITALS: BP 141/81
== END 2018-10-17 18:35 | disposition home or self-care (01) | DRG 765 ==
LOC: APU 04:13 → OB 08:55
PROVIDERS: ADMIT Obstetrics & Gynecology; ATTEND Obstetrics & Gynecology
PROC: 10D00Z1 Extraction of Products of Conception, Low, Open Approach (ICD-10-PCS; principal; 2018-10-15)
PROC: 0UB70ZZ Excision of Bilateral Fallopian Tubes, Open Approach (ICD-10-PCS; 2018-10-15)
PROC: 3E0234Z Introduction of Serum, Toxoid and Vaccine into Muscle, Percutaneous Approach (ICD-10-PCS; 2018-10-16)
PROC: 3E0334Z Introduction of Serum, Toxoid and Vaccine into Peripheral Vein, Percutaneous Approach (ICD-10-PCS; 2018-10-16)
DX: O34.211 Maternal care for low transverse scar from previous cesarean delivery (principal); D62 Acute posthemorrhagic anemia; O42.02 Full-term premature rupture of membranes, onset of labor within 24 hours of rupture; Z3A.38 38 weeks gestation of pregnancy; Z37.0 Single live birth; Z23 Encounter for immunization
CPT/HCPCS: 36415; 85014; 85018; 85027; 85461; 86592; 86850; 86900; 86901; 87806; 88302; 90471; 90715; G0378; J0690; J1170; J1200; J1885; J2405; J2590; J2765; J2790; J3010; J7120; J7121